=== PATIENT | female | born 2005 | race Caucasian/White ===

== ENCOUNTER 2024-07-23 05:28 | Emergency (ER) | payer BC ==
[2024-07-23] MEDS ORDERED: ASPIRIN 81 MG CHEWABLE TABLET ONE (05:39)
[2024-07-23 05:58] LABS: Absolute Eosinophils 0.2 K/uL (0-0.5); Absolute Lymphocytes (CBC) 3.7 K/uL (0.7-4.9); Absolute Monocytes 0.9 K/uL (0.1-1.3); Absolute Neutrophil 5.2 K/uL (1.8-8.0); Basophils % 0.4 % (0-1.3); Eosinophils % 1.9 % (0-4.4); Hemoglobin 12.4 g/dL (12.0-15.0); MCH 26.1 pg (27.0-35.0); MCHC 32.6 g/dL (32.0-36.0); MCV 79.9 fL (80-100); MPV 9.3 fL (7.6-11.3); Monocytes % 8.8 % (3.3-12.3); Neutrophils % 51.9 % (41.7-73.7); Platelets 355 thou/uL (152-406); RBC Red Blood Cell Count 4.76 M/uL (3.86-4.86); Red Cell Distribution Width 16.4 % (12.1-15.2)
[2024-07-23 06:22] LABS: Anion Gap 8.3 mEq/L (5.0-15.0); Potassium 3.3 mEq/L (3.5-5.1); Troponin High Sensitivity 9.7 pg/mL (<58.9)
--- NOTE | 2024-07-23 06:46 | RAD REPORT ---
EXAM: XR Chest 1 View AP HISTORY: Chest pain COMPARISON: None TECHNIQUE: Chest 1 View AP FINDINGS: Trachea midline. Heart size and pulmonary vessels within normal limits. Lungs clear without evidence of consolidation, mass, or significant pulmonary edema. No significant pleural effusion or pneumothorax. Thoracic spine shows mild leftward convex curvature. No old exam available for comparison. This may represent mild thoracic spine levoscoliosis or patient positioning. IMPRESSION: No radiographic evidence of acute chest disease. Electronically signed by: José Schilling MD 07/23/2024 06:30 AM [facility] Due to temporary technical issues with the PACS/Fire[employer] Mobile reporting system, reports are being evan d by the in-house radiologist without review as a courtesy to ensure prompt reporting the interpreting radiologist is fully responsible for the content of the report. Transcribed Date/Time: 07/23/2024 6:46 AM
--- NOTE | 2024-07-23 08:47 | RAD REPORT ---
EXAMINATION: CTA CHEST PE CLINICAL INDICATION: CHEST PAIN TECHNIQUE: This examination was performed according to an angiographic protocol with 3D post-processi ng. This involves 3D reconstructions, MIPs, volume rendered images and/or shaded surface rendering. One or more of the following dose reduction techniques were used: Automated exposure control, adjustm ent of the mA and/or kV according to patient size, and/or iterative reconstruction. Unless otherwise specified, incidental findings do not require dedicated imaging follow-up. COMPARISON: No prior exam. FINDINGS: PULMONARY ARTERIES: Normal caliber. No evidence of pulmonary emboli to the subsegmental level. THORACIC AORTA: Normal caliber and configuration. LUNGS: No evidence of airspace or interstitial process. No nodules. Inferior most posterior lung base is excluded from [id number]. PLEURA: No pleural effusion. No pneumothorax. MEDIASTINUM AND LYMPH NODES: No mediastinal mass or fluid collection. Normal size mediastinal, hilar, and axillary lymph nodes. OSSEOUS STRUCTURES AND CHEST WALL: Intact. UPPER ABDOMEN: No significant abnormalities. IMPRESSION: No evidence of pulmonary emboli to the subsegmental level.
--- NOTE | 2024-07-23 09:10 | ER ---
Nurse's Notes [facility] Name: Tin Bingham Age: 19 yrs Sex: Female : 2005 Arrival Date: 07/23/2024 Time: 05:28 Bed 4 Private MD: Diagnosis: Chest pain, unspecified Presentation: 07/23 05:42 Chief complaint: Patient states: She woke up with sharp chest pain 30 mins before dd2 coming to ER. Coronavirus screen: At this time, the client does not indicate any symptoms associated with coronavirus-19. Ebola Screen: No symptoms or risks identified at this time. Initial Sepsis Screen: Does the patient meet any 2 criteria? No. Patient's initial sepsis screen is negative. Does the patient have a suspected source of infection? No. Patient's initial sepsis screen is negative. Risk Assessment: Do you want to hurt yourself or someone else? Patient reports no desire to harm self or others. Onset of symptoms was July 23, 2024. 05:42 Method Of Arrival: Ambulatory dd2 05:42 Acuity: GERBER 3 dd2 Triage Assessment: 05:51 General: Appears uncomfortable, Behavior is cooperative, appropriate for age, anxious, dd2 crying. Pain: Complains of pain in mid-sternal area Pain does not radiate. Pain currently is 7 out of 10 on a pain scale. Quality of pain is described as sharp. EENT: No deficits noted. No signs and/or symptoms were reported regarding the EENT system. Neuro: Level of Consciousness is awake, alert, obeys commands, Oriented to person, place, time, situation, Appropriate for age Speech Pt has a stutter . Cardiovascular: Reports chest pain, Heart tones S1 S2 present Patient's skin is warm and dry. Rhythm is regular Chest pain began 30 minutes prior to arrival. Respiratory: Airway is patent Respiratory effort is even, unlabored, Respiratory pattern is regular, symmetrical. GI: No deficits noted. No signs and/or symptoms were reported involving the gastrointestinal system. Abdomen is non-distended, Abd is soft and non tender X 4 quads. : No deficits noted. No signs and/or symptoms were reported regarding the genitourinary system. Derm: No deficits noted. No signs and/or symptoms reported regarding the dermatologic system. Musculoskeletal: No deficits noted. No signs and/or symptoms reported regarding the musculoskeletal system. Circulation, motion, and sensation intact. Range of motion: intact in all extremities. 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 - Infectious Disease History:: Denies. - Social history:: Smoking status: Patient denies any tobacco usage or history of. Screenin:54 [facility] ED Fall Risk Assessment (Adult) History of falling in the last 3 months, dd2 including since admission No falls in past 3 months (0 pts) Confusion or Disorientation No (0 pts) Intoxicated or Sedated No (0 pts) Impaired Gait No (0 pts) Mobility Assist Device Used No (0 pt) Altered Elimination No (0 pt) Score/Fall Risk Level 0 - 2 = Low Risk Oriented to surroundings, Maintained a safe environment, Educated pt \T\ family on fall prevention, incl call for assistance when getting out of bed, Assessed \T\ reinforced patient's understanding of fall precautions, Hourly rounding (assess needs \T\ fall precautionary measures) done. Abuse screen: Denies threats or abuse. Nutritional screening: No deficits noted. Tuberculosis screening: No symptoms or risk factors identified. Assessment: 05:54 Reassessment: SEE TRIAGE ASSESSMENT FOR FULL ASSESSMENT. dd2 09:16 Reassessment: Patient appears in no apparent distress at this time. Patient states bp symptoms have improved. Vital Signs: 05:42 BP 135 / 85; Pulse 105; Resp 17; Temp 98.3; Pulse Ox 100% ; Weight 47.63 kg; Height 4 dd2 ft. 11 in. ; Pain 7/10; 06:16 BP 119 / 78; Pulse 88; Resp 16; Pulse Ox 100% ; dd2 06:45 BP 122 / 81; Pulse 84; Resp 18; Pulse Ox 99% ; br2 07:33 BP 117 / 64; Pulse 70; Resp 15; Pulse Ox 99% ; bp 09:15 BP 119 / 75; Pulse 85; Resp 16; Pulse Ox 99% ; bp 05:42 Body Mass Index 21.21 (47.63 kg, 149.86 cm) dd2 05:42 Pain Scale: Adult dd2 [place] Coma Score: 05:54 Eye Response: spontaneous(4). Motor Response: obeys commands(6). Verbal Response: dd2 oriented(5). Total: 15. ED Course: 05:31 Patient arrived in ED. vc1 05:32 Kristopher Cisneros DO is Attending Physician. ms3 05:46 TABITHA GONZALEZ, ESTELA is Primary Nurse. dd2 05:46 No provider procedures requiring assistance completed. Initial lab(s) drawn, by me, dd2 sent to lab. Inserted saline lock: 20 gauge in left antecubital area, using aseptic technique. Blood collected. Flushed with 10 mL NS. Patient maintains SpO2 saturation greater than 95% on room air. 05:46 Client placed on continuous cardiac and pulse oximetry monitoring. NIBP monitoring dd2 applied. monitor tech on. Door closed. Noise minimized. Warm blanket given. Pillow given. Verbal reassurance given. 05:51 Triage completed. dd2 05:51 Arm band placed on right wrist. Patient placed in an exam room, on a stretcher, on dd2 air sampling and monitoring, on pulse oximetry. 05:54 Patient has correct armband on for positive identification. Bed in low position. Call dd2 light in reach. Side rails up X2. 06:23 Chest Single View XRAY In Process Unspecified. EDMS 07:23 Attending Physician role handed off by Kristopher Cisneros DO ms3 07:23 Rafa Antony MD is Attending Physician. ms3 08:44 CT Chest For PE Angio In Process Unspecified. EDMS 09:17 IV discontinued, intact, bleeding controlled, No redness/swelling at site. Pressure bp dressing applied. 09:17 Provided Education on: NA. bp Administered Medications: 05:46 Drug: Aspirin PO Chewable Tablet 324 mg PO once; 81 mg tablets x 4 Route: PO; dd2 06:51 Follow up: Response: No adverse reaction br2 Medication: 05:54 VIS not applicable for this client. dd2 Outcome: 09:09 Discharge ordered by . bo1 09:17 Discharged to home ambulatory, with family, bp 09:17 Condition: stable 09:17 Discharge instructions given to patient, Instructed on discharge instructions, follow up and referral plans. medication usage, Demonstrated understanding of instructions, follow-up care, medications, Prescriptions given X 1, 09:17 Patient left the ED. bp Signatures: Dispatcher [employer] EDMS Jacob Manuel, RN RN bp Kristopher Cisneros, DO DO ms3 Noe, Rita, RN RN vc1 Rafa Antony MD MD bo1 Kristy Schrader, RN RN br2 TABITHA GONZALEZ RN RN dd2
--- NOTE | 2024-07-23 09:10 | EDPHYS ---
Physician Documentation [facility] Name: Tin Bingham Age: 19 yrs Sex: Female : 2005 Arrival Date: 07/23/2024 Time: 05:28 Bed 4 Private MD: ED Physician Rafa Antony HPI: 07/23 05:44 This 19 yrs old Female presents to ER via Unassigned with complaints of Chest Pain - ms3 eye twitching. 05:44 Tin Suarez, a 19-year-old female, presents to the Emergency Department with a sharp ms3 pain in her chest that radiated to her back, accompanied by difficulty breathing. She reports feeling shaky and confused during the episode. The pain is currently rated as a 7 out of 10 in intensity and is located in the center of her chest. She denies experiencing nausea, vomiting, or sweating. This is her first occurrence of such symptoms. There is no history of leg swelling or hemoptysis. She is not currently taking any medications, including control, and reports no known allergies.. 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 - Infectious Disease History:: Denies. - Social history:: Smoking status: Patient denies any tobacco usage or history of. ROS: 05:36 Constitutional: Negative for fever, and chills. ms3 05:36 Abdomen/GI: Negative for abdominal pain, nausea, vomiting, diarrhea, and constipation, MS/Extremity: Negative for injury and deformity, Skin: Negative for injury, rash, and discoloration, 05:36 Cardiovascular: Positive for chest pain, 05:36 Respiratory: Positive for shortness of breath, Exam: 05:36 Constitutional: This is a well developed, well nourished patient who is awake, alert, ms3 and in no acute distress. Chest/axilla: Normal chest wall appearance and motion. Nontender with no deformity. 05:36 Respiratory: Lungs have equal breath sounds bilaterally, clear to auscultation and percussion. No rales, rhonchi or wheezes noted. No increased work of breathing, no retractions or nasal flaring. Abdomen/GI: Soft, non-tender, with normal bowel sounds. No distension or tympany. No guarding or rebound. No evidence of tenderness throughout. MS/ Extremity: Pulses equal, no cyanosis. Neurovascular intact. Full, normal range of motion. 05:36 Cardiovascular: Rate: tachycardic, Rhythm: regular, Pulses: no pulse deficits are appreciated, Heart sounds: normal, normal S1and S2, 05:36 Psych: Behavior/mood is anxious, tearful. 05:46 ECG was reviewed by the Attending Physician. ms3 Vital Signs: 05:42 BP 135 / 85; Pulse 105; Resp 17; Temp 98.3; Pulse Ox 100% ; Weight 47.63 kg; Height 4 dd2 ft. 11 in. ; Pain 7/10; 06:16 BP 119 / 78; Pulse 88; Resp 16; Pulse Ox 100% ; dd2 06:45 BP 122 / 81; Pulse 84; Resp 18; Pulse Ox 99% ; br2 07:33 BP 117 / 64; Pulse 70; Resp 15; Pulse Ox 99% ; bp 09:15 BP 119 / 75; Pulse 85; Resp 16; Pulse Ox 99% ; bp 05:42 Body Mass Index 21.21 (47.63 kg, 149.86 cm) dd2 05:42 Pain Scale: Adult dd2 [place] Coma Score: 05:54 Eye Response: spontaneous(4). Motor Response: obeys commands(6). Verbal Response: dd2 oriented(5). Total: 15. MDM: 05:32 Medical Screening Exam initiated ms3 07:22 Differential diagnosis: abnormal EKG, acute myocardial infarction, pneumonia, ms3 pneumothorax, pulmonary embolus. Transition of care: After a detail discussion of the patient's case, care is transferred to Rafa Antony MD. 09:07 Data reviewed: vital signs, lab test result(s), radiologic studies, CT scan, CT angio bo1 of the chest. ED course: Pt and mother have reported sxs for over a month. No evidence of PE or NE. Will F/U with PCP in [place], [place] and have additional studies and care as OP. Meanwhile recommend NSAID trial. 07/23 05:36 Order name: Basic Metabolic Panel; Complete Time: 06:31 ms3 07/23 05:36 Order name: CBC with Diff; Complete Time: 06:31 ms3 07/23 05:36 Order name: D-Dimer; Complete Time: 06:31 ms3 07/23 05:36 Order name: Troponin HS; Complete Time: 06:31 ms3 07/23 07:47 Order name: Test, Serum; Complete Time: 08:07 bo1 07/23 05:32 Order name: Chest Single View XRAY; Complete Time: 08:07 ms3 07/23 06:32 Order name: CT Chest For PE Angio; Complete Time: 08:54 ms3 07/23 05:32 Order name: EKG; Complete Time: 05:32 ms3 07/23 05:32 Order name: EKG - Nurse/Tech; Complete Time: 05:42 ms3 07/23 05:36 Order name: Cardiac monitoring; Complete Time: 05:46 ms3 07/23 05:36 Order name: IV Saline Lock; Complete Time: 05:46 ms3 07/23 05:36 Order name: Labs collected and sent; Complete Time: 05:46 ms3 07/23 05:36 Order name: O2 Per Protocol; Complete Time: 05:46 ms3 07/23 05:36 Order name: O2 Sat Monitoring; Complete Time: 05:46 ms3 EC:46 Rate is 101 beats/min. Rhythm is regular. QRS Ronda is Normal. CO interval is normal. ms3 QRS interval is normal. Clinical impression: Sinus tachycardia. Interpreted by me. Reviewed by me. Administered Medications: 05:46 Drug: Aspirin PO Chewable Tablet 324 mg PO once; 81 mg tablets x 4 Route: PO; dd2 06:51 Follow up: Response: No adverse reaction br2 Disposition Summary: 07/23/24 09:09 Discharge Ordered Notes: Location: Home bo1 Problem: chronic bo1 Symptoms: are unchanged bo1 Condition: Stable bo1 Diagnosis - Chest pain, unspecified bo1 Followup: bo1 - With: Private Physician - When: Upon discharge from the Emergency Department - Reason: Recheck today's complaints, Continuance of care Discharge Instructions: - Discharge Summary Sheet bo1 - Nonspecific Chest Pain, Adult bo1 Forms: - Medication Reconciliation Form bo1 - Antibiotic Education bo1 - Prescription Opioid Use bo1 - Patient Portal Instructions bo1 - Leadership Thank You Letter bo1 Prescriptions: - Ibuprofen 600 mg Oral Tablet - take 1 tablet ORAL route every 6 hours As needed take with food; 30 tablet; bo1 Refills: 0, Product Selection Permitted Signatures: Dispatcher [employer] EDMS Kristopher Cisneros, DO ms3 Rafa Antony MD MD bo1 TABITHA GONZALEZ, RN RN dd2 Kristy Schrader RN br2 Corrections: (The following items were deleted from the chart) 05:32 05:32 Chest Single View+RAD.RAD.BRZ ordered. EDMS EDMS 05:36 05:36 BASIC METABOLIC PANEL+C.LAB.BRZ ordered. EDMS EDMS 05:36 05:36 CBC+H.LAB.BRZ ordered. EDMS EDMS 05:36 05:36 D-DIMER+COAG.LAB.BRZ ordered. EDMS EDMS 05:36 05:36 Troponin High Sensitivity+C.LAB.BRZ ordered. EDMS EDMS 07:48 07:48 TEST, SERUM+SC.LAB.BRZ ordered. EDMS EDMS
[2024-07-23 09:22] VITALS: TEMP 98.3
[2024-07-23 09:25] VITALS: O2SAT 99
[2024-07-23 09:29] VITALS: BP 119/75
--- NOTE | 2024-07-26 12:06 | EKG ---
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
== END 2024-07-23 09:17 | disposition home or self-care (01) ==
LOC: ER 05:28
DX: R07.9 Chest pain, unspecified (principal)
CPT/HCPCS: 93005; 85025; 80048; 36415; 84703; 85379; 84484; 71275; 71045; 99284; Q9967